=== PATIENT | male | born 1960 | race Caucasian/White ===

== ENCOUNTER 2017-11-04 07:50 | Inpatient (IN) ==
[2017-11-04] MEDS ORDERED: *HR* Ticagrelor 90 MG TABLET PO ONE (07:55)
[2017-11-04] MEDS ORDERED: *HR* Heparin 5,000 UNIT/ML VIAL IVP PRN ×2 (07:58)
[2017-11-04] MEDS ORDERED: *HR* Heparin 5,000 UNIT/ML VIAL IVP ONE (07:58)
--- NOTE | 2017-11-04 08:02 | Emergency Department Note ---
Disposition Clinical Impression: ST segment depression Chest pain Qualifiers: Chest pain type: unspecified Qualified Code(s): R07.9 - Chest pain, unspecified Disposition: Admitted As Inpatient Condition: Good Time of Disposition: 08:14 Chest Pain HPI - General Chief Complaint: ED Chest Pain Time Seen by Provider: 11/04/17 07:52 Source: patient, EMS Mode of arrival: EMS Limitations: no limitations Vital Signs Reviewed: Yes Nursing Notes Reviewed: Yes - History of Present Illness HPI Narrative: 57-year-old male former smoker presents to the ED via EMS for chest pain. States woke up around 630 around 7 o'clock while doing some laundry he felt a heavy pressure in the center of the chess with radiation down the arms. He has some diaphoresis and nausea denies any shortness of breath. Symptoms resolved. EMS arrived EKG performed showed T wave inversion in the lateral leads which was transmitted here to [facility] and seeing at 0745. While in route patient develop chest pain and a rhythm strip performed at [address] elevation in inferior leads with reciprocal ST depression. V2 V3. Patient was given total of 2 nitro with resolution of symptoms. A full dose 324 mg aspirin given as well. Patient denies history of cardiac ischemic disease. Denies any family cardiac history. He was a former smoker. He denies any blood in his stool, black tarry stool, emits emesis or hemoptysis. Denies history of blood clots. Denies use of anticoagulants. At this time patient states is pain is coming up to a scale up to 10. Blood pressures remained stable systolic 130. We have contacted casino dealer and will establish IV with EKG at bedside and labs drawn with XR at bedside. EKG was performed at arrival 0751 we shows resolution of the ST changes, no T wave inversions there are ST depression seen and V3 V4. No STEMI alert at this time. Pt complaint: chest pain - Related Data Home Medications Medication Instructions Recorded Confirmed Fluticasone Propionate Nasal 2 spray NS DAILY 06/21/16 11/04/17 [Flonase] Naproxen [Naprosyn] 500 mg PO BID 06/21/16 11/04/17 Gabapentin [Neurontin] 300 mg PO TID 11/04/17 11/04/17 Omeprazole [PriLOSEC] 20 mg PO DAILY 11/04/17 11/04/17 Allergies Allergy/AdvReac Type Severity Reaction Status Date / Time Penicillins Allergy See Verified 10/31/15 10:39 Comments All systems ED: reviewed and negative except as stated. Review of Systems: As Per HPI Constitutional: Denies: fever, chills ENT ED: Denies: congestion, dysphagia Cardiovascular: Reports: chest pain. Denies: palpitations Respiratory: Denies: cough, dyspnea Gastrointestinal: Reports: nausea. Denies: abdominal pain, vomiting Genitourinary: Denies: dysuria, hematuria Musculoskeletal: Denies: back pain, neck pain Integumentary: Denies: rash, abrasion Neurological: Denies: headache, vertigo Endocrine: Reports: fatigue Hematological/Lymphatic: Denies: easy bleeding, easy bruising Chest Pain PMH - Past Medical History Medical history: Reports: arthritis, GERD Surgical history: Reports: cholecystectomy, orthopedic, other Psychiatric history: Reports: no psych history - Social History Smoking Status: Former smoker Alcohol use: Reports: heavy Physical Exam - General Limitations: no limitations General appearance: alert, in no apparent distress - Head Head exam: atraumatic, normocephalic, normal inspection - Eye Eye exam: Present: normal appearance, PERRL, EOMI - ENT ENT exam: normal exam, normal oropharynx, mucous membranes moist - Neck Neck exam: Present: normal inspection, full ROM, trachea midline - Chest Chest inspection: Present: normal inspection, symmetric chest wall rise. Absent : tenderness, rash - Respiratory Respiratory exam: Present: normal lung sounds bilaterally. Absent: respiratory distress, wheezes - Cardiovascular Cardiovascular exam: Present: regular rate, normal rhythm, normal heart sounds - Expanded Cardiovascular Exam Peripheral pulses: 2+: radial (R), radial (L), posterior tibialis (R), posterior tibialis (L) - Abdominal Exam Abdominal exam: Present: soft, Non-Tender. Absent: tenderness, distention, guarding, rebound, rigidity - Extremities Exam Extremities exam: Present: normal inspection, full ROM, normal capillary refill. Absent: tenderness, pedal edema, calf tenderness - Neurological Exam Neurological exam: Present: alert, oriented X3 - Psychiatric Psychiatric exam: Present: normal affect, normal mood - Skin Skin exam: Present: warm, dry, intact, normal color, pallor. Absent: cyanosis, diaphoresis Course Course Narrative: 57-year-old male presents with typical chest pain with some minimal exertion with associated diaphoresis and nausea. EKG performed by EMS with active chest pain show ST elevation in inferior lead with reciprocal ST depression. On arrival patient has received full dose aspirin with a total of 2 nitro sublingual with resolution of pain. EKG performed here at [address] showed [address] elevation. STEMI workup initiated no alert at this time. Contacted the casino dealer Dr. Cano who recommends nitro and pain control. Placed on low-dose ACS heparin, no bolus of Brilinta or Plavix at this time. Patient will require heart catheterization later today. Will be admitted for chest pain evaluation. He is in agreement with this plan. - Reevaluation(s) Reevaluation #1: Patient's currently chest pain free. A repeat EKG was performed showed normalization of the ST segment. The troponin 0.01. HEART score 6. Spoke with Dr. Cano the field adjuster and will come down to see the patient. He will be admitted. Time: 09:12 - Consultations Consultation #1: My ED attending Dr. Solares, spoke with casino dealer Dr. Chadwick Cano who agree with workup and to not activate STEMI alert at this time. Will control pain with nitro drip and hold Brilinta and Plavix, place on Heparin drip and clinical laboratory manager later in next hour or so. Currently pain is down to 2. Denies any blood in stool, black tarry stool, hematemesis, or hemoptysis. Denies anticoagulant use. Time: 08:00 Vital Signs Pulse Rate 96 11/04/17 07:50 Respiratory Rate 18 11/04/17 07:50 Blood Pressure 138/83 11/04/17 07:50 O2 Sat by Pulse Oximetry 95 11/04/17 07:50 Temperature 97.7 F 11/04/17 08:22 Pulse Rate 77 11/04/17 09:30 Respiratory Rate 16 11/04/17 09:30 Blood Pressure 140/87 11/04/17 09:45 O2 Sat by Pulse Oximetry 97 11/04/17 09:30 Oxygen Delivery Oxygen Delivery Room Air Chest Pain - MDM Narrative Medical decision making narrative: Patient was discussed with my attending physician who agrees with ED management and final disposition. They independently evaluated the patient. Please refer to their attestation to this encounter for additional information. This note was generated by [employer] voice recognition software and as a result grammatical or spelling errors may occur using this program. - Medical Records Medical records reviewed: Yes I reviewed the patient's medical records. - Lab Data Lab results reviewed: Yes I reviewed the patient's lab results. Result diagrams: 11/04/17 07:55 11/04/17 07:55 Lab Results 11/04/17 11/04/17 11/04/17 Range/Units 07:55 07:55 07:55 WBC 7.7 (4.3-11.1) K/mcL RBC 4.87 (4.19-5.50) M/mcL Hgb 16.2 (12.9-16.9) g/dL Hct 45.6 (37.5-50.1) % MCV 93.6 (83.0-100.0) fL MCH 33.3 (28.0-33.3) pg MCHC 35.5 (31.6-35.5) g/dL RDW 12.4 (11.5-14.5) % Plt Count 243 (140-400) K/mcL MPV 9.1 L (9.4-12.4) fL Immature Gran % 0.1 (0-4) % Seg Neutrophils % 41.1 % Lymphocytes % 46.3 % Monocytes % 10.7 % Eosinophils % 1.0 % Basophils % 0.8 % Neutrophils # 3.1 (1.6-8.9) K/mcL Lymphocytes # 3.5 (0.6-4.6) K/mcL Monocytes # 0.8 (0.0-1.3) K/mcL Eosinophils # 0.1 (0.0-0.6) K/mcL Basophils # 0.1 (0.0-0.2) K/mcL PT 11.8 (9.4-12.1) Seconds INR 1.1 APTT 24.1 L (26.0-36.0) Seconds Sodium 138 (136-145) mEq/L Potassium 4.2 (3.5-4.5) mEq/L Chloride 105 (98-109) mEq/L Carbon Dioxide 20 (19-29) mEq/L BUN 12 (8-26) mg/dL Creatinine 1.00 (0.72-1.25) mg/dL Est GFR ( Amer) > 60 (> 60) Est GFR (Non-Af Amer) > 60 (> 60) BUN/Creatinine Ratio 12 (6-26) Glucose 155 H (70-99) mg/dL Calculated Osmolality 289 (280-300) Calcium 8.8 (8.6-10.8) mg/dL Troponin I (0-0.03) ng/mL 11/04/17 Range/Units 07:55 WBC (4.3-11.1) K/mcL RBC (4.19-5.50) M/mcL Hgb (12.9-16.9) g/dL Hct (37.5-50.1) % MCV (83.0-100.0) fL MCH (28.0-33.3) pg MCHC (31.6-35.5) g/dL RDW (11.5-14.5) % Plt Count (140-400) K/mcL MPV (9.4-12.4) fL Immature Gran % (0-4) % Seg Neutrophils % % Lymphocytes % % Monocytes % % Eosinophils % % Basophils % % Neutrophils # (1.6-8.9) K/mcL Lymphocytes # (0.6-4.6) K/mcL Monocytes # (0.0-1.3) K/mcL Eosinophils # (0.0-0.6) K/mcL Basophils # (0.0-0.2) K/mcL PT (9.4-12.1) Seconds INR APTT (26.0-36.0) Seconds Sodium (136-145) mEq/L Potassium (3.5-4.5) mEq/L Chloride (98-109) mEq/L Carbon Dioxide (19-29) mEq/L BUN (8-26) mg/dL Creatinine (0.72-1.25) mg/dL Est GFR ( Amer) (> 60) Est GFR (Non-Af Amer) (> 60) BUN/Creatinine Ratio (6-26) Glucose (70-99) mg/dL Calculated Osmolality (280-300) Calcium (8.6-10.8) mg/dL Troponin I 0.01 (0-0.03) ng/mL - Radiology Data Radiology results reviewed: Yes I reviewed the patient's radiology results. Chest X-Ray 11/04/17 07:52 IMPRESSION: No evidence of acute cardiopulmonary disease. D/ / Sridhar Goff MD / Sridhar Goff MD Interpreting Provider: Sridhar Goff MD - EKG Data EKG attestation: Yes I reviewed and interpreted this EKG. EKG results narrative: EKG performed 0751 normal sinus rhythm 74 bpm, no ST elevation, ST depression seen V3 V4. No T wave inversion. Intervals are within normal limits. Compared to old EKG performed 11/22/2002 normal sinus rhythm [address] depressions are new. NOT STEMI Heart Score - Score History: Highly Suspicious EKG: Significant ST-Depression Age: 45-65 Risk Factors: 1-2 risk factors Troponin: Less than normal limit HEART Score Total: 6 Critical Care Time Critical Care Time: Yes Total Critical Care Time: 30 Attestation: The high probability of a clinically significant, sudden or life threatening deterioration of the [CV] system(s) required my full and direct attention, intervention and personal management. The aggregate critical care time was [30] minutes. This time is in addition to time spent performing reported procedures but includes the following: [x] Data Review and interpretation [x] Patient assessment and monitoring of vital signs [x] Documentation [x] Medication orders and management Attestation Statement - Attestation Attestation: I, Joseph Solares DO, examined this patient [id number] and my medical decision-making was reviewed with Manjit Gaming DO , Resident Physician. I agree with the documented findings, disposition and treatment plan as described except to the extent set forth below. Please see my progress notes for details. 57-year-old male presents emergency room by EMS with acute onset of left-sided substernal chest pain that started approximately 0700 hrs. this morning. During transport by EMS initial EKG did not show any acute signs of ST segment elevation. There were inverted T waves in 1 aVL in the lateral precordial leads. While driving to the hospital patient had acute onset of severe substernal chest pain. Repeat EKG showed significant ST segment elevation in leads 2, 3, aVf. Nitroglycerin was given as well as aspirin in transit. On arrival to the emergency room patient's chest pain was down to a 2. Immediate EKG was collected on arrival. Dr. rodrigues EKG shows no acute signs of ST segment elevation but there is possibly 1-1/2 mm depression in leads V2 and V3. Patient's chest pain is resolving at this time. Based on the symptoms history and EKGs in transit and immediate phone call status up to the casino dealer. A acute coronary syndrome alert was not started at this time secondary to the patient's resolving symptoms and stable EKG. Discussion was had with Dr. Chadwick Cano at length. We discussed the risks and history of this patient at this time. He recommended starting the patient on heparin drip and getting the laboratory workup results and discussing catheterization within the next hour. Agreed that no immediate catheterization is needed at this time. Also understands the patient will need cardiac intervention at some point considering the hospital EKGs in the presentation. Physical exam is otherwise unremarkable. Patient denies any other medications or medical history. He denies any cough, congestion hematemesis or hematochezia. Denies any dark melenic colored stool. Workup was ordered including Plavix and underwent. Those orders were canceled and heparin was started along with the nitroglycerin drip to be initially titrated at 50 g. Patient was resting comfortably in the bed. We will continue to monitor here until labs are resulted and then patient transferred to the Master Control Operator for definitive management. He detailed documentation of the physical exam, medical intervention, medical decision-making and disposition and the resident physician 's note 0825 Labs are all unremarkable this time. Hemoglobin is stable. Nitroglycerin and heparin drip started. Reconsultation with Dr. Cano established at this time for medical recommendation. Patient does elicit some alcohol abuse history including drinking daily. Last drink was at 10 PM last night 0930 Dr. izaguirre evaluated the patient here at the bedside. He is going to the patient's catheter lab. Nursing staff is on the way to pick him up at this time. Patient is remained chest pain-free here in the emergency room and said to repeat EKGs that showed no acute signs of ST segment elevation. Vital signs remained stable. Patient will be transported to the Master Control Operator at this time for definitive management
[2017-11-04 08:03] LABS: Basophils # 0.1 K/mcL (0.0-0.2); Basophils % 0.8 %; Eosinophils # 0.1 K/mcL (0.0-0.6); Hematocrit 45.6 % (37.5-50.1); Hemoglobin 16.2 g/dL (12.9-16.9); Immature Granulocytes % 0.1 % (0-4); Lymphocytes # 3.5 K/mcL (0.6-4.6); Lymphocytes % 46.3 %; Mean Corpuscular HGB Conc 35.5 g/dL (31.6-35.5); Mean Corpuscular Hemoglobin 33.3 pg (28.0-33.3); Mean Corpuscular Volume 93.6 fL (83.0-100.0); Mean Platelet Volume 9.1 fL (9.4-12.4); Monocytes # 0.8 K/mcL (0.0-1.3); Monocytes % 10.7 %; Neutrophils # 3.1 K/mcL (1.6-8.9); Platelet Count 243 K/mcL (140-400); Red Blood Count 4.87 M/mcL (4.19-5.50); Red Cell Distribution Width 12.4 % (11.5-14.5); Segmented Neutrophils % 41.1 %
[2017-11-04] MEDS: Heparin 25,000 UNIT/500 ML D5W 25,000 UNIT/500 ML BAG IVC SCH (08:08)
[2017-11-04 08:09] LABS: INR 1.1; Prothrombin Time 11.8 Seconds (9.4-12.1)
[2017-11-04] MEDS: Nitroglycerin 25 MG/250 ML INFUS..BTL IVC SCH (08:09)
[2017-11-04] MEDS ORDERED: 0.9 % Sodium Chloride 1,000 ML ONE ×2 (08:10→09:41)
[2017-11-04 08:11] LABS: Activated Partial Thrombo Time 24.1 Seconds (26.0-36.0)
[2017-11-04 08:16] LABS: BUN/Creatinine Ratio 12 (6-26); Blood Urea Nitrogen 12 mg/dL (8-26); Calcium 8.8 mg/dL (8.6-10.8); Carbon Dioxide 20 mEq/L (19-29); Chloride 105 mEq/L (98-109); Glucose 155 mg/dL (70-99); Osmolality,Calculated 289 (280-300); Sodium 138 mEq/L (136-145); eGFR For African Americans > 60 (> 60); eGFR For Non-African Americans > 60 (> 60)
[2017-11-04 08:18] LABS: Potassium 4.2 mEq/L (3.5-4.5)
[2017-11-04] MEDS ORDERED: *HR* Heparin 10,000 UNIT/10 ML VIAL ONE (09:42)
[2017-11-04] MEDS ORDERED: Heparin 1,000 UNITS/500 mL NS 0 ML ONE (09:42)
[2017-11-04] MEDS ORDERED: Nitroglycerin 1,000 MCG/10 ML VIAL IV ONE (09:42)
--- NOTE | 2017-11-04 09:48 | Cardiology History & Physical ---
Date of Encounter: 11/04/17 Time of Encounter: 09:15 Assessment and Plan (1) Chest pain Current Visit: Yes Status: Acute The assessment and plan as outlined above was discussed with the patient and/or family members who expressed understanding and agreement. All questions were answered. Chest pain consistent with acute coronary syndrome, transient EKg changes suggest inferior distribution, risks and benefits discussed, options for medical vs. invasive approach, recommendations for invasive approach in light of continued chest pain, patient elects to proceed with LHC/possible, at bedside agrees. Qualifiers: Chest pain type: chest pain due to myocardial ischemia Qualified Code(s): I20.9 - Angina pectoris, unspecified (2) GERD (gastroesophageal reflux disease) Current Visit: Yes Status: Acute The assessment and plan as outlined above was discussed with the patient and/or family members who expressed understanding and agreement. All questions were answered. Chest pain presentation much different from usual GERD pain, will continue PPI Qualifiers: Qualified Code(s): K21.9 - Gastro-esophageal reflux disease without esophagitis (3) Back pain due to injury Current Visit: Yes Status: Acute The assessment and plan as outlined above was discussed with the patient and/or family members who expressed understanding and agreement. All questions were answered. Pain adequately controlled on NSAIDS, will discuss discontinuation due to increased cardiovascular risk after define coronary anatomy. (4) Hip pain Current Visit: Yes Status: Acute The assessment and plan as outlined above was discussed with the patient and/or family members who expressed understanding and agreement. All questions were answered. 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 Qualifiers: Qualified Code(s): M25.551 - Pain in right hip; M25.552 - Pain in left hip; M25.552 - Pain in left hip History of Present Illness Chief complaint: Chest pain HPI: Mr. Christie is a 57 year old male who awoke approximately 6 am with severe 9/10 epigastric chest pain, accompanied by shortness of breath and diaphoresis, lasted around then minutes, resolved spontaneously to 3/10. He felt pain would be relieved with bowel movement, walked to bathroom, pain returned, now radiating into neck and both arms. He left the commode, laid down on the floor for approximately ten minutes, with improvement in pain to 5/10, which increased back to 9/10 with attempting to stand and walk. His called the squad, and gave him one baby aspirin. He received another 4 aspirn in route. Initial EKG on the scene was normal, with pain slowly resolving. In route he developed again worsening pain with radiation, and repeat EKG showed acute ST seg elevation in inferior leads. Chest pain and EKG changes resolved to 1/10 with second sub linqual ntg. He reports still has mild 1 -2 mid epigastric pressure. Neck and arm pain, diaphoresis and nausea have resolved. Past Med Surg Social Fam HX - Past Medical History Source: patient Medical history: arthritis, GERD, other (Chronic low back pain secondary to lumbar disc disease, on disability for back pain. ) Psychiatric history: no psych history - Past Surgical History Surgical History: cholecystectomy, orthopedic, other - Social History Smoking Status: Former smoker Smokeless Tobacco Status: No Alcohol use: heavy Drug use: none - Family History Father Living Status: Cause of : cancer Hx Family Cardiac Disorders: No Hx Family Respiratory Disorders: No Hx Family Cancer: Yes Mother Hx Family Cardiac Disorders: Yes (Mom of CHF of unknown cause. ) Medications and Allergies Fluticasone Propionate Nasal [Flonase] 2 spray NS DAILY 06/21/16 [History] Naproxen [Naprosyn] 500 mg PO BID 06/21/16 [History] Gabapentin [Neurontin] 300 mg PO TID 11/04/17 [History] Omeprazole [PriLOSEC] 20 mg PO DAILY 11/04/17 [History] 3 Allergy/AdvReac Type Severity Reaction Status Date / Time Penicillins Allergy See Verified 10/31/15 10:39 Comments All Systems Review: A 10-system review of systems was performed and is negative for pertinent findings except as documented above in the HPI. - Constitutional Constitutional: weight gain - Cardiovascular Cardiovascular: chest pain at rest, diaphoresis, dyspnea at rest, radiating jaw , neck or arm pain - Musculoskeletal Musculoskeletal: abnormal gait, arthralgias, back pain, other (Severe back pain limits activity, but has been walking one mile a day slowly, feels he does less than a third the activity he performed before back injury three years ago. HE also has chronic bilateral hip pain, with bilateral hip replacements, on Naprosyn for pain control. ) Physical Examination Vital Signs, Last 4 Hours Temp Pulse Resp BP Pulse Ox 11/04/17 09:30 77 16 127/77 97 11/04/17 08:45 71 18 128/86 98 11/04/17 08:30 71 18 132/85 97 11/04/17 08:22 97.7 F 103 16 135/87 99 11/04/17 08:15 103 16 135/87 99 11/04/17 08:00 85 16 124/77 98 11/04/17 07:50 96 18 138/83 95 General: Conversant HEENT: Atraumatic, Normocephaly, Mucus Membranes Moist Neck: No JVD, Normal carotid pulses Cardiac: Reg Rate and Rhythm, Normal S1 and S2, No Murmur Lungs: No Wheeze, Rales, Rhonchi Neuro: Alert and responsive, No focal deficits noted Abdomen: Soft, Non-Tender, Other (no abdominal bruit or palpable mass. ) Skin: No rashes noted on visualized skin Musculoskeletal: No Chest Wall Tenderness Extremities: No Clubbing, No Cyanosis, No Edema Results 11/04/17 07:55 11/04/17 07:55 Lab Results 11/04/17 11/04/17 11/04/17 07:55 07:55 07:55 WBC 7.7 Hgb 16.2 Hct 45.6 Plt Count 243 INR 1.1 APTT 24.1 L Sodium 138 Potassium 4.2 Chloride 105 Carbon Dioxide 20 BUN 12 Creatinine 1.00 Glucose 155 H Calcium 8.8 Troponin I 11/04/17 07:55 WBC Hgb Hct Plt Count INR APTT Sodium Potassium Chloride Carbon Dioxide BUN Creatinine Glucose Calcium Troponin I 0.01 - EKG Interpretation EKG results cardiology: personally reviewed (NSR, no acute changes on most recent EKG with chest pain improved.)
[2017-11-04] MEDS ORDERED: *HR* Morphine 2 MG/ML SYRINGE IVP PRN (10:06)
[2017-11-04] MEDS ORDERED: *HR* Midazolam HCl 5 MG/5 ML VIAL IVP ONE (10:08)
[2017-11-04] MEDS ORDERED: Acetaminophen 325 MG TABLET PO PRN (10:58)
--- NOTE | 2017-11-04 10:58 | Invasive Diagnostic Lab Proc ---
Name: Genaro Christie Date of Study: 11/04/2017 Date: 1960 Ht: 70.1in Medical Record#: [id number] Age: 57 Wt: 220.02lb Gender: Male BSA: 2.18 Order #: [id number] BMI: 31.5 Physicians Procedure Physician: Chadwick Cano DO Referring MD: Referring MD: Staff Name Position Time In Irene Wallace RN Monitor 10:15 AM Vickie Palacio RN Retort Furnace Operator 10:15 AM Ronel Curry RT (R) Scrub 10:16 AM Indications Indication Unstable Angina Procedures Performed Procedure L HRT ARTERY/VENTRICLE ANGIO Pre-Procedure Checklist Informed consent is complete signed and on chart. H&P is on chart. ID band is on and ID verified with patient. Patient NPO for procedure The procedure was described for the patient and questions were answered. Blood Pressure: 161/87 ECG is on chart. Rhythm: NSR Plan of Care Patient will tolerate the procedure without complications. Adequate level of comfort will be maintained. Hemodynamics will remain stable Patient will recover from procedure without complications. Respiratory function will be maintained. Cardiac rhythm will remain stable. Patient temperature will be maintained. Patient and/or family have verbalized understanding of the procedure. Patient Education Chief Complaint/Reason for Test: Cardiac Cath Developmental Category: Adult (18-64 years) Developmentally Appropriate for Age: Yes Learning Barriers: None Education Needs: Plan of Care Education Method: Verbal Information Taught: Cardiac Cath Educational Evaluation: Able to repeat information Intravenous Access Time IV Size Location DC'd Fluid/Drip Rate Units RN 10:14 AM 18g 1 1/4" Patent On Arrival Lt Antecubital Vickie Palacio RN 10:15 AM 18g 1 1/4" Patent On Arrival Rt Hand Vickie Palacio RN Allergies Penicillins Vital Signs Time BP (mmHg) HR (bpm) O2 Sat. RR (bpm) LOC 10:15 AM 128 / 86 71 98 % 18 5 = Fully awake and oriented or at pre-proc level 10:19 AM / % 4 = Oriented but drowsy 10:20 AM / % 5 = Fully awake and oriented or at pre-proc level 10:08 AM 161 / 87 66 99 % 25 10:13 AM 166 / 89 64 100 % 23 10:18 AM 161 / 89 79 100 % 18 10:23 AM 134 / 104 94 100 % 14 10:28 AM 157 / 93 81 100 % 12 10:33 AM 170 / 110 84 100 % 17 10:20 AM / % 5 = Fully awake and oriented or at pre-proc level Procedural Medications Time Medication Dose Units Method Given By 10:17 AM Oxygen 2 L/min nasal cannula Vickie Palacio RN 10:07 AM Versed 2 mg Intravenous Vickie Palacio RN 10:17 AM Versed 1 mg Intravenous Vickie Palacio RN 10:18 AM Lidocaine 2% 10 ml Subcutaneous Chadwick Cano DO Maikel Score Preprocedure Postprocedure Activity 2- Moves 4 extremities sustained head lift Activity 2- Moves 4 extremities sustained head lift Circulation 2- SBP +/= 20 points of pre-anesthetic level Circulation 2- SBP +/= 20 points of pre-anesthetic level Consciousness 2- Awake and alert oriented x 3 Consciousness 2- Awake and alert oriented x 3 O2 Saturation 2- Able to maintain O2 satruation of 92% on room air O2 Saturation 2- Able to maintain O2 satruation of 92% on room air Respiratory 2- Able to deep breathe and cough well Respiratory 2- Able to deep breathe and cough well Total Score 10 Total Score 10 Contrast Agent: Isovue Diagnostic Contrast: 50 ml Total Contrast: 50 ml Fluoro Dose: 237 mGy Procedure Log Time Note Enter By 10:00 AM heparin and nitro drip discontinued on arrival to labor trainer. [email or web address] 10:00 AM Pt [facility] labor trainer [facility] Irene Wallace RN Position: Monitor Time in: 10: [facility] 10[facility]01 AM Case Delayed No [email or web address] 10:01 AM Vickie Palacio RN Position: Retort Furnace Operator Time in: 10: [facility] 10:01 AM Ronel Curry RT (R) Position: Scrub Time in: 10:00 [facility] 10:03 AM Patient charges- Angio tray pack, Navilyst 3mm J, Pulse Oximetry and ACIST tubing and transducer [email or web address] 10:07 AM CathStat 10:07 AM Vitals capture started with the following parameters, Patient=Adult, Interval=5 min, Initial Ascxzlvu=588 mmHg, Deflation Rate=5 mmHg, Cuff placed on Right Arm 10:07 AM Time: : Versed 2 mg Intravenous Given by Vickie Palacio RN [email or web address] 10:08 AM HR=66 bpm, OACN=339/87 mmhg, SpO2=99.0 %, Resp=25 B/min, Comment=NSR 10:13 AM Recorded ECG: HR=63 Condition=Condition 1 10:13 AM HR=64 bpm, EUBN=608/89 mmhg, ArD9=603.0 %, Resp=23 B/min 10:14 AM Pressure channel 1 zeroed. 10:17 AM Hair removed from procedure site in procedure lab using clippers. Bilateral groin prepped with Chloraprep by Vickie Palacio RN, safety strap applied then patient was draped. Skin intact. [email or web address] 10:17 AM Physican paged/called 10:17. [email or web address] 10:17 AM Physican responded and notified patient is ready 10:17 [email or web address] 10:17 AM Physician arrived 10:17 [email or web address] 10:17 AM Meet and greet completed [email or web address] 10:17 AM Sign in performed according to hospital policy. [email or web address] 10:17 AM Procedure start 10:17 [email or web address] 10:17 AM Time: 10:17 Oxygen on at 2 L/min per nasal cannula by Vickie Palacio RN [email or web address] 10:17 AM Time: 10:17 Versed 1 mg Intravenous Given by Vickie Palacio RN [email or web address] 10:18 AM Clinical Presentation: Unstable angina [email or web address] 10:18 AM Time out performed according to hospital policy [email or web address] 10:18 AM Time: 10:18 10 ml Lidocaine 2% to right groin Subcutaneous Given by Chadwick Cano DO [email or web address] 10:18 AM Micro-Introducer Kit utilized for sheath placement [email or web address] 10:18 AM HR=79 bpm, ZVPH=208/89 mmhg, PcK5=796.0 %, Resp=18 B/min, Comment=NSR 10:19 AM Time: 10:19 Patient comfortable and pain free: Yes [email or web address] 10:19 AM Time: 10:19LOC: 4 = Oriented but drowsy [email or web address] 10:20 AM Time: 10:20 Patient comfortable and pain free: Yes [email or web address] 10:20 AM Time: 10:20LOC: 5 = Fully awake and oriented or at pre-proc level [email or web address] 10:22 AM Access obtained by percutaneous puncture. 5Fr 10cm Terumo [place] sheath placed in right Femoral vein. [id number] tsoummers 10:23 AM Access obtained by percutaneous puncture. 6Fr 10cm Terumo [place] sheath placed in right Femoral artery. [id number] tsoummers 10:23 AM HR=94 bpm, DTVB=901/104 mmhg, MbQ5=380.0 %, Resp=14 B/min, Comment=NSR 10:23 AM 6Fr FL 4 catheter inserted over the wire [facility] mmers 10:24 AM LCA angiography performed in multiple views. [email or web address] 10:24 AM Recorded Pressure: Ao, HR=68, Condition=Condition 1 (Aorta) Ao 119/69/89 10:26 AM Catheter removed tsoumm 10:26 AM 6Fr FR 4 catheter inserted over the wire [facility] tsoummers 10:27 AM Recorded Pressure: LV, HR=67, Condition=Condition 1 (Left Ventricle) LV 60/17/15 10:27 AM Recorded Pressure: LV, Ao, PQ=292, Condition=Condition 1 (Left Ventricle) LV 89/6/14, (Aorta) Ao 126/64/92 10:28 AM Catheter selectively placed in left ventricle tsoummers 10:28 AM Bolus angiogram of left Ventricle complete: hand injection. [email or web address] 10:28 AM RCA angiography performed in multiple views. [email or web address] 10:28 AM Recorded Pressure: Ao, HR=84, Condition=Condition 1 (Aorta) Ao 123/71/96 10:28 AM HR=81 bpm, SBQL=705/93 mmhg, KjE1=120.0 %, Resp=12 B/min, Comment=NSR 10:29 AM Bolus angiogram of right Femoral complete: hand injection. [email or web address] 10:29 AM Catheter removed mm 10:29 AM Wire removed [facility] 10:29 AM Procedure completed at 10:29 tsmmers 10:31 AM Sign out completed: Radiation Dose 237.27 mGy Fluoro Time: 1.1 Isovue 370 - 200ml contrast 50 ml given by Chadwick Cano DO. Complications: NoneCardiac Rehab Consult needed: YesConfirmed administered medications: Yes tsmmers 10:31 AM Arterial sheath pulled, Mynx closure device used and was Successful [id number] S/N. tsoummers 10:32 AM Estimated Blood Loss: minimal tsoummers 10:32 AM Post ECG NSR tsoummers 10:32 AM Post Blood Pressure 157/93 tsoummers 10:32 AM Information taught Cardiac Cath mm 10:32 AM Education needs Procedure, Plan of Care, and Responsibilities of Patient in Care tsoummers 10:32 AM Learning barriers :None tsoummers 10:32 AM Education Methods Verbal oummers 10:32 AM Education evaluation Able to repeat information [facility] 10:33 AM Site status No bleeding/hematoma - Rt Groin as reported by Ronel Curry RT (R) at 10:32 tsoummers 10:33 AM Plavix, Effient or Brilinta given No oummers 10:33 AM Family placed in consult room. [email or web address] 10:33 AM Complications: None oummers 10:33 AM Fluoro Time: 1.1 tsoummers 10:33 AM Isovue 370 - 200ml contrast 50 ml given by Chadwick Cano DO. tsoummers 10:33 AM HR=84 bpm, GCZQ=860/110 mmhg, SnW9=570.0 %, Resp=17 B/min, Comment=NSR 10:33 AM Radiation Dose 237.27 mGy tsoummers 10:34 AM Conversation between Interventionalist and CT Surgeon. tsoummers 10:35 AM Opsite applied oummers 10:36 AM Time: 10:20LOC: 5 = Fully awake and oriented or at pre-proc level tsoummers 10:36 AM Time: 10:20 Patient comfortable and pain free: Yes tsoummers 10:37 AM Coronary Dominance: right tsoummers 10:37 AM Lesion found in Proximal RCA. Pre Stenosis: 30 Pre GUANACO Flow: tsoummers 10:37 AM Lesion found in Distal RCA. Pre Stenosis: 70 Pre GUANACO Flow: tsoummers 10:37 AM Lesion found in Proximal LAD. Pre Stenosis: 80 Pre GUANACO Flow: tsoummers 10:38 AM Lesion found in 1st Marginal. Pre Stenosis: 80 Pre GUANACO Flow: tsoummers 10:38 AM Proximal Left Anterior Descending Coronary Artery with 80% stenosis. If graft is supplying this territory, 0 % stenosis. tsoummers 10:38 AM Circumflex, Obtuse Marginal, Left Posterior Descending, and Left Posterolateral Coronary Arteries with 80 % stenosis. tsoummers 10:38 AM Right Coronary, Right Posterior Descending Arteries with Right Posterolateral and Acute Marginal branches with 70 % stenosis. tsmmers 10:40 AM nitro drip resumed at 50mcg/min at this time per Vickie Palacio RN [facility] 10:[address] Valencia at this time. [facility] 10:48 AM Report given to Agnes ALCALA Pt taken to Room #54. 10:48 [facility] 10:49 AM Patient out of room: 10:49 [facility] 10:49 AM Delay to floor No [facility] Complications Complication None Hemodynamics Pressures Site Systolic/A Wave Diastolic/V Wave Mean AO 119 69 89 LV 60 17 15 LV 89 6 14 AO 126 64 92 AO 123 71 96 Post Procedure Information Blood Pressure: 157/93 mmHg Rhythm: NSR Post procedural instructions were given Surgery consult for CABG Closure Device Time Device Success/Fail 11/04/2017 10:31:00 AM MynxGrip Successful Site Checks Time Location Status Staff Sheath In? Note 10:32 AM Rt Groin No bleeding/hematoma Ronel Curry RT (R) Pulses Updated by Irene Wallace RN on 11/04/2017 10:49:45 AM electronically signed on 11/04/2017 10:50:11 AM with status of Final
[2017-11-04] MEDS: 0.9 % Sodium Chloride 1,000 ML IVC SCH ×3 (13:32→23:10)
[2017-11-04] MEDS: Gabapentin 300 MG CAPSULE PO SCH ×2 (14:52→21:23)
--- NOTE | 2017-11-04 16:19 | Cardiothoracic Consult Note ---
Date of Encounter: 11/04/17 Time of Encounter: 16:16 Assessment and Plan (1) Chest pain Current Visit: Yes Status: Acute The patient is a 57-year-old otherwise healthy man who had his initial onset of substernal chest pains morning. He had severe substernal chest pain and epigastric pain radiating to his neck and down both arms and associated shortness of breath, diaphoresis, and nausea. He underwent urgent cardiac catheterization today was found to have severe three-vessel CAD. LVEF 50%. He has been recommended for urgent CABG. I agree with this recommendation. The STS risk ocular reveals an operative mortality risk 0.37%, permit stroke risk 0.32% , prolonged ventilation risk 3.93%, deep sternal wound infection risk 0.26%, renal failure risk 0.83%, and reoperation risk 2.92%. The patient will undergo CABG in the morning. The assessment and plan as outlined above was discussed with the patient and/or family members who expressed understanding and agreement. All questions were answered. Qualifiers: Chest pain type: chest pain due to myocardial ischemia Qualified Code(s): I20.9 - Angina pectoris, unspecified - History of Present Illness Consult date: 11/04/17 Requesting physician: Chadwick Cano Consult reason: CABG evaluation Chief complaint: Chest pain History of present illness: Mr. Christie is a 57 year old otherwise healthy man with sudden onset of epigastric and substernal chest pain radiating into his neck and down both arms this morning. Initially the patient thought that he had indigestion and walked into the bathroom. At this time the patient had severe pain and associated shortness of breath, diaphoresis, and nausea. The patient laid on the bathroom floor and had some relief of his substernal chest pain. His gave him an aspirin with some relief of the pain. The patient was transported to [facility] emergency department and in route received additional aspirin. In the emergency department he received sublingual nitroglycerin with relief of his pain. Although the initial troponin I level was normal, he underwent urgent cardiac catheterization given his presenting symptoms. The cardiac catheterization revealed severe three-vessel CAD and an LVEF 50%. In particular the patient had an 80% proximal LAD lesion, an 80% proximal OM1 lesion, an 80% distal RCA lesion. He has been recommended for urgent CABG. Past Med Surg Social Fam HX - Past Medical History Medical history: arthritis, coronary artery disease, GERD, other Psychiatric history: no psych history - Past Surgical History Surgical History: cholecystectomy, orthopedic, other (Bilateral total hip replacements, right rotator cuff repair) - Social History Smoking Status: Former smoker Packs per day: 1.5ppd X 15 years Smokeless Tobacco Status: No Alcohol use: heavy Drug use: none Occupational status: previously employed, disabled Current living situation: Home - Independent Activity Level: Independent ambulation, Very active Recent Out of Country Travel Within the Last 8 Weeks: No Exposure or Possible Exposure to Illness During Travel: No - Family History Father Living Status: Cause of : cancer Hx Family Cardiac Disorders: No Hx Family Respiratory Disorders: No Hx Family Cancer: Yes Mother Hx Family Cardiac Disorders: Yes (Mom of CHF of unknown cause. ) Medications and Allergies Fluticasone Propionate Nasal [Flonase] 2 spray NS DAILY 06/21/16 [History] Naproxen [Naprosyn] 500 mg PO BID 06/21/16 [History] Gabapentin [Neurontin] 300 mg PO TID 11/04/17 [History] Omeprazole [PriLOSEC] 20 mg PO DAILY 11/04/17 [History] 3 Allergy/AdvReac Type Severity Reaction Status Date / Time Penicillins Allergy See Verified 10/31/15 10:39 Comments All Systems Review: A 10-system review of systems was performed and is negative for pertinent findings except as documented above in the HPI. Physical Examination Vital Signs, Last 4 Hours Temp Pulse Resp BP Pulse Ox 11/04/17 15:16 98.2 F 80 18 138/80 96 11/04/17 14:45 77 16 122/81 96 11/04/17 14:17 92 16 136/82 92 11/04/17 13:17 71 16 137/90 98 11/04/17 12:47 68 16 129/81 96 11/04/17 12:45 71 16 137/90 98 11/04/17 12:17 74 16 126/95 99 General: Conversant, No Apparent Distress Neck: No JVD, Normal carotid pulses Cardiac: Reg Rate and Rhythm, Normal S1 and S2, No Murmur Lungs: Normal Breath Sounds, No Wheeze, Rales, Rhonchi Neuro: Alert and responsive, No focal deficits noted, Motor nerves intact, Sensory nerves intact Vascular: Normal capillary refill Abdomen: Soft, Non-tender Skin: No rashes noted on visualized skin Musculoskeletal: No Chest Wall Tenderness Extremities: No Clubbing, No Cyanosis, No Edema, Normal Pulses Results 11/04/17 07:55 11/04/17 07:55 - Imaging Chest Xray: image reviewed (Normal cardiac size. No active pulmonary disease.) Consult Discharge Plan - Plan Referrals: Diogenes Johnson DO [Primary Care Provider] -
--- NOTE | 2017-11-04 16:52 | Electrocardiograph Report ---
[address] [address] Test Date: 2017-11-04 Pat Name: Genaro Christie Department: 104 Room: 3B54 Gender: M Elementary Supervisor: : 1960 Requested By: Deborah Prather Order Number: [id number] Reading MD: Josie Hitchcock Measurements Intervals [place] Rate: 74 P: 43 ND: 172 QRS: 61 QRSD: 101 T: 60 QT: 439 QTc: 467 Interpretive Statements SINUS RHYTHM WITH SINUS ARRHYTHMIA MODERATE ST DEPRESSION PROLONGED QT INTERVAL Electronically Signed On 11-04-2017 16:51:06 EST by Josie Hitchcock
--- NOTE | 2017-11-04 16:53 | Electrocardiograph Report ---
[address] [address] Test Date: 2017-11-04 Pat Name: Genaro Christie Department: 104 Room: 3B54 Gender: M Senior Information Security Analyst: : 1960 Requested By: Joseph Solares Order Number: [id number] Reading MD: Josie Hitchcock Measurements Intervals [place] Rate: 65 P: 22 AL: 165 QRS: 41 QRSD: 96 T: 55 QT: 433 QTc: 444 Interpretive Statements SINUS RHYTHM Electronically Signed On 11-04-2017 16:51:22 EST by Josie Hitchcock
[2017-11-04 17:03] LABS: Chol/HDL Ratio 2.7 (0-4.9); Cholesterol 143 mg/dL (< 200); HDL Cholesterol 53 mg/dL (40-59); LDL Cholesterol,Calculated 75 mg/dL (0-99); Triglycerides 77 mg/dL (< 150)
[2017-11-04 18:12] LABS: Hemoglobin A1C 4.8 %
[2017-11-04] MEDS: Chlorhexidine Rinse 15 ML MOUTHWASH MM SCH (21:24)
[2017-11-05] MEDS: 0.9 % Sodium Chloride 1,000 ML IVC SCH ×5 (05:41→17:26)
[2017-11-05 06:54] LABS: Basophils % 0.4 %; Eosinophils # 0.1 K/mcL (0.0-0.6); Eosinophils % 0.7 %; Hematocrit 44.5 % (37.5-50.1); Hemoglobin 14.8 g/dL (12.9-16.9); Immature Granulocytes % 0.1 % (0-4); Lymphocytes # 1.9 K/mcL (0.6-4.6); Lymphocytes % 27.8 %; Mean Corpuscular HGB Conc 33.3 g/dL (31.6-35.5); Mean Corpuscular Hemoglobin 32.6 pg (28.0-33.3); Mean Platelet Volume 9.2 fL (9.4-12.4); Monocytes # 0.6 K/mcL (0.0-1.3); Neutrophils # 4.2 K/mcL (1.6-8.9); Platelet Count 210 K/mcL (140-400); Red Blood Count 4.54 M/mcL (4.19-5.50); Red Cell Distribution Width 12.8 % (11.5-14.5)
[2017-11-05 06:58] LABS: BUN/Creatinine Ratio 9 (6-26); Blood Urea Nitrogen 9 mg/dL (8-26); Calcium 8.8 mg/dL (8.6-10.8); Carbon Dioxide 25 mEq/L (19-29); Chloride 109 mEq/L (98-109); Glucose 101 mg/dL (70-99); Osmolality,Calculated 289 (280-300); Potassium 4.4 mEq/L (3.5-4.5); Sodium 140 mEq/L (136-145); eGFR For African Americans > 60 (> 60); eGFR For Non-African Americans > 60 (> 60)
[2017-11-05] MEDS ORDERED: Heparin 1,000 UNIT, 0.9 % Sodium Chloride 500 ML INARTERIAL ONE (08:00)
[2017-11-05] MEDS: Gabapentin 300 MG CAPSULE PO SCH ×3 (08:53→19:49)
[2017-11-05] MEDS ORDERED: Aspirin 81 MG TAB.CHEW PO SCH (09:00)
[2017-11-05] MEDS ORDERED: Fluticasone Propionate Nasal 50 MCG/SPRAY BOTTLE NS SCH (09:00)
[2017-11-05] MEDS ORDERED: Sodium Bicarbonate 50 MEQ/50 ML VIAL IVC ONE (09:10)
[2017-11-05] MEDS ORDERED: *HR* Heparin 10,000 UNIT/10 ML VIAL IV ONE (09:10)
[2017-11-05] MEDS ORDERED: D5% in Water 250 ML IV BAG IV ONE (09:10)
[2017-11-05] MEDS ORDERED: Mannitol 25% vial 12.5 GM/50 ML VIAL IVP ONE (09:10)
[2017-11-05] MEDS ORDERED: Tranexamic Acid 1,000 MG/10 ML VIAL IVPB ONE (09:10)
[2017-11-05] MEDS ORDERED: Lidocaine 2% Syringe 100 MG/5 ML IV ONE (09:10)
[2017-11-05] MEDS ORDERED: Albumin Human 25% 25 GM/100 ML IV.SOLN IV ONE (09:10)
[2017-11-05] MEDS ORDERED: *HR* Phenylephrine 10 MG/ML VIAL IVC ONE (09:10)
[2017-11-05] MEDS ORDERED: *HR* Magnesium Sulfate 2 GM/50 ML PIGGYBACK IVPB ONE (09:10)
[2017-11-05] MEDS ORDERED: *HR* Rocuronium Bromide 50 MG/5 ML VIAL ONE (10:04)
[2017-11-05] MEDS ORDERED: *HR* Succinylcholine 200 MG/10 ML VIAL IVP ONE (10:05)
[2017-11-05] MEDS ORDERED: *HR* Norepinephrine 4 MG/4 ML VIAL IVC ONE (10:07)
[2017-11-05] MEDS ORDERED: *HR* Phenylephrine 10 MG/ML VIAL ONE (10:07)
[2017-11-05] MEDS ORDERED: *HR* EPINEPHrine 1 MG/ML AMPUL ONE (10:09)
[2017-11-05] MEDS ORDERED: *HR* Nitroprusside 50 MG VIAL IVC ONE (10:13)
[2017-11-05] MEDS ORDERED: *HR* FentaNYL (PF) 250 MCG/5 ML VIAL ONE ×2 (10:18→12:59)
[2017-11-05] MEDS ORDERED: *HR* Midazolam HCl 5 MG/5 ML VIAL IVP ONE (10:18)
[2017-11-05] MEDS: Chlorhexidine Rinse 15 ML MOUTHWASH MM SCH (10:46)
[2017-11-05] MEDS ORDERED: D5% in Water 500 ML ONE (10:59)
[2017-11-05] MEDS ORDERED: *HR* Propofol 200 MG/20 ML VIAL IVP ONE ×2 (11:15→14:38)
[2017-11-05] MEDS ORDERED: Clindamycin 900 MG/50 ML 900 MG/50 ML IV.SOLN IVPB ONE ×2 (11:30→12:07)
[2017-11-05 12:10] LABS: ABG Base Excess -2 mEq/L (-2 to 3); ABG Chloride 109 mEq/L (98-107); ABG Glucose 100 mg/dL (60-95); ABG HCO3 22 mEq/L (21-27); ABG Ionized Calcium 1.21 mmol/L (1.15-1.35); ABG Oxygen Saturation 97 % (95-98); ABG PCO2 35 mmHg (35-45); ABG PH 7.41 pH Units (7.32-7.45); ABG PO2 84 mmHg (85-104); ABG TCO2 23 mEq/L (20-26)
[2017-11-05 13:49] LABS: ABG Base Excess -1 mEq/L (-2 to 3); ABG Chloride 110 mEq/L (98-107); ABG Glucose 121 mg/dL (60-95); ABG HCO3 24 mEq/L (21-27); ABG Ionized Calcium 1.13 mmol/L (1.15-1.35); ABG Oxygen Saturation 100 % (95-98); ABG PCO2 39 mmHg (35-45); ABG PH 7.39 pH Units (7.32-7.45); ABG PO2 570 mmHg (85-104); ABG TCO2 25 mEq/L (20-26)
[2017-11-05 14:17] LABS: ABG Base Excess 1 mEq/L (-2 to 3); ABG Chloride 102 mEq/L (98-107); ABG Glucose 165 mg/dL (60-95); ABG HCO3 26 mEq/L (21-27); ABG Ionized Calcium 1.01 mmol/L (1.15-1.35); ABG PCO2 42 mmHg (35-45); ABG PH 7.39 pH Units (7.32-7.45); ABG PO2 > 630 mmHg (85-104); ABG TCO2 27 mEq/L (20-26)
[2017-11-05 14:40] LABS: ABG Base Excess 1 mEq/L (-2 to 3); ABG Chloride 104 mEq/L (98-107); ABG Glucose 149 mg/dL (60-95); ABG HCO3 27 mEq/L (21-27); ABG Ionized Calcium 1.03 mmol/L (1.15-1.35); ABG Oxygen Saturation 100 % (95-98); ABG PCO2 46 mmHg (35-45); ABG PH 7.37 pH Units (7.32-7.45); ABG PO2 533 mmHg (85-104); ABG TCO2 28 mEq/L (20-26)
[2017-11-05 15:13] LABS: ABG Base Excess 1 mEq/L (-2 to 3); ABG Chloride 106 mEq/L (98-107); ABG Glucose 104 mg/dL (60-95); ABG HCO3 26 mEq/L (21-27); ABG Ionized Calcium 1.18 mmol/L (1.15-1.35); ABG Oxygen Saturation 100 % (95-98); ABG PCO2 41 mmHg (35-45); ABG PO2 570 mmHg (85-104); ABG TCO2 27 mEq/L (20-26)
[2017-11-05] MEDS ORDERED: Albumin Human 5% 50.0 GM/1,000 ML VIAL ONE (15:26)
--- NOTE | 2017-11-05 15:49 | Operative Note ---
Date of procedure: 11/05/17 Pre-op diagnosis: CAD Post-op diagnosis: same Procedure: 1. CABG3 (VIERA to LAD, SVG to OM1, SVG to PDA). 2. Endoscopic vein harvesting, greater saphenous vein from right lower extremity. Implants: None. Complications: None. Anesthesia: ROBIA Surgeon: Adonay Valencia Meat Seafood Associate: Gui Bridges Specimen: None. Condition: stable Disposition: ICU Procedure in Detail: INDICATUINS FOR OPERATION: The patient is a 57 year old otherwise healthy man with sudden onset of epigastric and substernal chest pain radiating into his neck and down both arms this morning. Initially the patient thought that he had indigestion and walked into the bathroom. At this time the patient had severe pain and associated shortness of breath, diaphoresis, and nausea. The patient laid on the bathroom floor and had some relief of his substernal chest pain. His gave him an aspirin with some relief of the pain. The patient was transported to [facility] emergency department and in route received additional aspirin. In the emergency department he received sublingual nitroglycerin with relief of his pain. Although the initial troponin I level was normal, he underwent urgent cardiac catheterization given his presenting symptoms. The cardiac catheterization revealed severe three-vessel CAD and an LVEF 50%. In particular the patient had an 80% proximal LAD lesion, an 80% proximal OM1 lesion, an 80% distal RCA lesion. He has been recommended for urgent CABG FINDINGS AT OPERATION: The aorta was of normal caliber without calcification. The coronary arteries measure approximately 1.5-2mm in diameter and had mild distal disease. The greater saphenous vein was harvested endoscopically from the right lower extremity from the mid calf to the groin it was of good quality. The total bypass time was 63 minutes, cross-clamp time 33 minutes, intentional hypothermia 34C. DESCRIPTION OF OPERATION: After obtaining informed consent from the patient, he was taken to the operating room were a satisfactory general endotracheal anesthetic was induced. Appropriate monitoring lines placed, the patient's chest, abdomen, and lower extremity are prepped and draped in a sterile fashion. The greater saphenous vein was harvested endoscopically from the right lower extremity from the mid calf to the groin. The vein was removed, distended, and found to be of good quality. The saphenous tissue and skin edges were reapproximated using running Vicryl sutures. Simultaneously, a standard median sternotomy incision was made and the sternum divided. The VIERA was taken from its bed and side branches divided between hemoclips. The sternum was and the pericardium opened and reflected laterally. The patient was repaired for cannulation by placing pursestring sutures in the distal ascending aorta, mid-ascending aorta, and right atrial appendage. The patient was heparinized when the ACT was greater than 200 seconds , the distal ascending aorta was cannulated followed by placement of a dual stage venous cannula for the right atrial appendage and into the . Vena cava. A stab-in antegrade metabolic and is place the mid-ascending aorta. The patient was placed on bypass and temperature allowed to drift to 34C. The distal targets were identified and the aorta was crossclamped. The patient received 700 mL of cold antegrade crystalloid cardioplegia through the antegrade metabolic cannula and the patient's heart appeared rapid diastolic arrest. The distal RCA was opened with a [place] blade and the vein was anastomosed in an end-to-side to the distal RCA using a running 7-0 Prolene suture. The anastomosis was found to be hemostatic. This process was then repeated for the OM1 branch. After completion of this anastomosis the patient received a final dose of cold antegrade crystalloid cardioplegia through the aortic root. The LAD was opened with a [place] blade and the VIERA was anastomosed in an end-to- side fashion to the LAD using a running 7-0 Prolene suture. The anastomosis was found to be hemostatic and the mammary pedicle was tacked to the epicardium using interrupted 5-0 silk suture. Rewarming was begun during this anastomosis. The aortic cross-clamp was released and the heart distended. The veins were measured and cut at appropriate lengths. A partial occluding clamp was placed across the midascending aorta and the antegrade cardioplegia cannula was removed. An additional aortotomy site was then made with 11 blade and both sides were large and the 4 mm punch. The veins were then anastomosed in an end- to-side fashion to the aorta using a running 5-0 Prolene suture. The vein grafts were occluded with bulldog clamps and de-aired with a 25-gauge needle prior to removing the partial occluding clamp. The proximal and distal anastomoses were found to be hemostatic and the proximal anastomoses were marked with radiopaque loops. Two right ventricular temporary epicardial pacing was replaced, and 3 chest tubes were placed, 2 in the mediastinum and one into the left pleural space. During rewarming the patient's heart rhythm degenerated to ventricular fibrillation and required 2 direct current shocks in order to regain normal sinus rhythm. He was bolused with amiodarone and an amiodarone drip was begun. When the patient's systemic temperature reached 36C, he was ventilated received volume. He was weaned from bypass required no inotropic support. Protamine was administered, and the aortic and venous cannula were removed. The pursestring sutures were secured and the venous cannulation site was reinforced with a running 4-0 Prolene suture. The pericardium was loosely approximated in midline using interrupted 0 silk suture and the sternum was reapproximated using double wires. PRP was applied to the sternotomy edges and the subcutaneous tissue prior to complete closure of the incision. The pectoralis major fascia, rectus abdominis fascia, subcutaneous tissue, and skin edges were reapproximated using running Vicryl sutures. Sterile dressings were applied. The patient was transferred to the ICU in satisfactory postoperative condition. There were no intraoperative complications, and the instrument, needle, and sponge count were correct at end of operation. - Open Heart Detail DULCE (Internal Mammary Artery) Usage: Yes Cardiopulmonary Bypass Time (mins): 63 Aortic Cross Clamp Time (mins): 33 Intentional Hypothermia Temperature (C.): 34
[2017-11-05] MEDS ORDERED: Naloxone 0.4 MG/ML INJ IVP PRN (15:50)
[2017-11-05] MEDS ORDERED: *HR* Dextrose 50 % in Water (Syg) 50 ML SYRINGE IVP PRN (15:50)
[2017-11-05] MEDS ORDERED: Insulin Regular, Human 100 UNIT/ML IV PRN (15:50)
[2017-11-05] MEDS ORDERED: Amiodarone Premix 360 MG/200 ML BAG IVC ONE (15:50)
[2017-11-05] MEDS ORDERED: *HR* Morphine 2 MG/ML SYRINGE IVP PRN (15:50)
[2017-11-05] MEDS ORDERED: Acetaminophen 650 MG RECTAL SUPP RC PRN (15:50)
[2017-11-05] MEDS ORDERED: Potassium Chloride 40 MEQ/200 ML BAG IVPB PRN (15:50)
[2017-11-05] MEDS ORDERED: Norepinephrine 4 MG in D5% in Water 250 ML IVC SCH (16:00)
[2017-11-05] MEDS ORDERED: Pantoprazole 40 MG VIAL IVP SCH (16:00)
[2017-11-05] MEDS ORDERED: 0.9 % Sodium Chloride w KCl 20 MEQ/1,000 ML MLS IVC SCH (16:00)
[2017-11-05] MEDS ORDERED: Amiodarone Premix 360 MG/200 ML BAG IVC SCH (16:00)
[2017-11-05] MEDS ORDERED: Insulin Human Regular 100 UNIT in 0.9 % Sodium Chloride 100 ML IVC SCH (16:00)
[2017-11-05] MEDS: *HR* Morphine 2 MG/ML SYRINGE IVP PRN ×2 (16:16→17:17)
[2017-11-05] MEDS: Nitroglycerin 25 MG/250 ML INFUS..BTL IVC SCH ×2 (16:16→17:26)
[2017-11-05] MEDS: niCARdipine 40 MG/200 ML MLS IVC SCH (16:16)
[2017-11-05 16:42] LABS: Basophils % 0.2 %; Eosinophils # 0.1 K/mcL (0.0-0.6); Eosinophils % 0.4 %; Hematocrit 34.5 % (37.5-50.1); Immature Granulocytes % 0.5 % (0-4); Lymphocytes # 1.5 K/mcL (0.6-4.6); Lymphocytes % 8.9 %; Mean Corpuscular HGB Conc 34.5 g/dL (31.6-35.5); Mean Corpuscular Hemoglobin 33.7 pg (28.0-33.3); Mean Corpuscular Volume 97.7 fL (83.0-100.0); Monocytes % 6.1 %; Neutrophils # 13.8 K/mcL (1.6-8.9); Platelet Count 115 K/mcL (140-400); Red Blood Count 3.53 M/mcL (4.19-5.50); Red Cell Distribution Width 12.6 % (11.5-14.5); Segmented Neutrophils % 83.9 %
[2017-11-05 16:47] LABS: Hemoglobin 11.9 g/dL (12.9-16.9)
[2017-11-05 16:48] LABS: INR 1.4; Prothrombin Time 15.3 Seconds (9.4-12.1)
[2017-11-05 16:50] LABS: Activated Partial Thrombo Time 31.2 Seconds (26.0-36.0)
[2017-11-05 16:53] LABS: BUN/Creatinine Ratio 11 (6-26); Blood Urea Nitrogen 9 mg/dL (8-26); Calcium 7.8 mg/dL (8.6-10.8); Carbon Dioxide 23 mEq/L (19-29); Chloride 108 mEq/L (98-109); Glucose 116 mg/dL (70-99); Magnesium 2.2 mg/dL (1.6-2.6); Osmolality,Calculated 286 (280-300); Potassium 3.7 mEq/L (3.5-4.5); Sodium 138 mEq/L (136-145); eGFR For African Americans > 60 (> 60); eGFR For Non-African Americans > 60 (> 60)
[2017-11-05] MEDS: Heparin 25,000 UNIT/500 ML D5W 25,000 UNIT/500 ML BAG IVC SCH (16:53)
[2017-11-05 16:54] LABS: ABG Base Excess 2 mEq/L (-2 to 3); ABG HCO3 29 mEq/L (21-27); ABG Oxygen Saturation 100 % (95-98); ABG PCO2 54 mmHg (35-45); ABG PH 7.34 pH Units (7.32-7.45); ABG PO2 328 mmHg (85-104); ABG TCO2 31 mEq/L (20-26)
[2017-11-05] MEDS: Metoclopramide 10 MG/2 ML VIAL IVP SCH ×2 (17:30→23:13)
[2017-11-05] MEDS: Clindamycin 900 MG/50 ML 900 MG/50 ML IV.SOLN IVPB SCH ×2 (17:30→23:13)
[2017-11-05] MEDS: Ketorolac 15 MG/ML VIAL IVP SCH ×2 (17:30→23:13)
[2017-11-05 17:36] LABS: ABG Base Excess -3 mEq/L (-2 to 3); ABG HCO3 22 mEq/L (21-27); ABG Oxygen Saturation 96 % (95-98); ABG PCO2 38 mmHg (35-45); ABG PH 7.37 pH Units (7.32-7.45); ABG PO2 85 mmHg (85-104); ABG TCO2 23 mEq/L (20-26); Blood Gas Modality CPAP/PS; Blood Gas PEEP 5 cm H2O; Blood Gas Pressure Support 5 cm H2O
[2017-11-05] MEDS ORDERED: 0.9 % Sodium Chloride 250 ML ONE (19:31)
[2017-11-05 20:36] LABS: Hemoglobin 12.5 g/dL (12.9-16.9)
[2017-11-05] MEDS ORDERED: Chlorhexidine Rinse 15 ML MOUTHWASH MM SCH (21:00)
[2017-11-05] MEDS: *HR* OxyCODONE/APAP 5/325 TABLET PO PRN (21:04)
[2017-11-05 21:54] LABS: ABG Base Excess -3 mEq/L (-2 to 3); ABG HCO3 21 mEq/L (21-27); ABG Oxygen Saturation 98 % (95-98); ABG PCO2 33 mmHg (35-45); ABG PO2 98 mmHg (85-104); ABG TCO2 22 mEq/L (20-26)
[2017-11-06 04:04] LABS: Basophils % 0.1 %; Hematocrit 32.1 % (37.5-50.1); Immature Granulocytes % 0.3 % (0-4); Lymphocytes # 0.8 K/mcL (0.6-4.6); Lymphocytes % 4.6 %; Mean Corpuscular Hemoglobin 33.1 pg (28.0-33.3); Mean Corpuscular Volume 97.6 fL (83.0-100.0); Mean Platelet Volume 9.4 fL (9.4-12.4); Monocytes # 1.7 K/mcL (0.0-1.3); Monocytes % 10.2 %; Neutrophils # 14.3 K/mcL (1.6-8.9); Red Blood Count 3.29 M/mcL (4.19-5.50); Red Cell Distribution Width 12.8 % (11.5-14.5); Segmented Neutrophils % 84.8 %
[2017-11-06 04:06] LABS: Hemoglobin 10.9 g/dL (12.9-16.9); Platelet Count 98 K/mcL (140-400)
[2017-11-06 04:11] LABS: INR 1.1; Prothrombin Time 12.4 Seconds (9.4-12.1)
[2017-11-06 04:14] LABS: Activated Partial Thrombo Time 28.2 Seconds (26.0-36.0)
[2017-11-06 04:15] LABS: BUN/Creatinine Ratio 12 (6-26); Blood Urea Nitrogen 11 mg/dL (8-26); Calcium 8.1 mg/dL (8.6-10.8); Carbon Dioxide 23 mEq/L (19-29); Chloride 109 mEq/L (98-109); Glucose 132 mg/dL (70-99); Magnesium 2.1 mg/dL (1.6-2.6); Osmolality,Calculated 287 (280-300); Sodium 138 mEq/L (136-145); eGFR For African Americans > 60 (> 60); eGFR For Non-African Americans > 60 (> 60)
[2017-11-06] MEDS: 0.9 % Sodium Chloride 1,000 ML IVC SCH ×2 (04:32)
[2017-11-06] MEDS: Ketorolac 15 MG/ML VIAL IVP SCH ×3 (04:32→17:15)
[2017-11-06] MEDS: Nitroglycerin 25 MG/250 ML INFUS..BTL IVC SCH (04:32)
[2017-11-06] MEDS: Metoclopramide 10 MG/2 ML VIAL IVP SCH ×3 (04:32→17:15)
[2017-11-06] MEDS: niCARdipine 40 MG/200 ML MLS IVC SCH (04:33)
[2017-11-06] MEDS: *HR* OxyCODONE/APAP 5/325 TABLET PO PRN ×2 (06:42→11:33)
--- NOTE | 2017-11-06 07:36 | Cardiothoracic Progress Note ---
Date of Encounter: 11/06/17 Time of Encounter: 07:33 - Assessment and plan (1) Chest pain Current Visit: Yes Status: Acute The patient has remained hemodynamically stable overnight. He is extubated and breathing comfortably. The arterial line, Orellana catheter, and Onley-Lori catheter will be removed. The patient will be transferred to the stepdown unit when a bed is available. The assessment and plan as outlined above was discussed with the patient and/or family members who expressed understanding and agreement. All questions were answered. Qualifiers: Chest pain type: chest pain due to myocardial ischemia Qualified Code(s): I20.9 - Angina pectoris, unspecified - Subjective Procedure(s) Performed: POD#1 S/P CABG3 Interval history: The patient remained hemodynamically stable overnight. He is extubated and breathing comfortably. He has no complaints. Vital Signs, Last 4 Hours Temp Pulse Resp BP Pulse Ox 11/06/17 06:00 99.2 F 80 18 116/78 99 11/06/17 05:00 99.5 F 80 21 126/60 99 11/06/17 04:00 99.2 F 78 18 133/66 99 11/06/17 03:55 14 116/73 100 Oxgyen Flow Rate Oxygen Flow Rate (LPM) 3 Clinical Data, last 8 Hours Output, Chest Tube Drainage 75 Amount [Mediastinal #2] Output, Chest Tube Drainage 10 Amount [Mediastinal #2] Output, Chest Tube Drainage 20 Amount [Mediastinal #2] Output, Chest Tube Drainage 0 Amount [Mediastinal #2] Output, Chest Tube Drainage 10 Amount [Mediastinal #2] Output, Chest Tube Drainage 5 Amount [Mediastinal #2] Output, Chest Tube Drainage 8 Amount [Mediastinal #2] Output, Chest Tube Drainage 50 Amount [Mediastinal #1] Output, Chest Tube Drainage 20 Amount [Mediastinal #1] Output, Chest Tube Drainage 40 Amount [Mediastinal #1] Output, Chest Tube Drainage 18 Amount [Mediastinal #1] Output, Chest Tube Drainage 44 Amount [Mediastinal #1] Output, Chest Tube Drainage 22 Amount [Mediastinal #1] Output, Chest Tube Drainage 25 Amount [Mediastinal #1] - Physical Examination General: Conversant, No Apparent Distress Neck: No JVD, Normal carotid pulses Cardiac: Reg Rate and Rhythm, Normal S1 and S2, No Murmur Incision: No signs of infection, Dry/intact dressing Sternum: Stable Chest tubes: Minimal drainage, Other (No air leak.) Pacing Wires: In place Lungs: Normal Breath Sounds, No Wheeze, Rales, Rhonchi Neuro: Alert and responsive, No focal deficits noted Vascular: Normal capillary refill Extremities: No Clubbing, No Cyanosis, No Edema, Normal Pulses - Labs 11/06/17 03:54 11/06/17 03:54 Lab Results, Last 24 hours 11/05/17 11/05/17 11/05/17 16:37 16:37 16:37 WBC 16.5 H D Hgb 11.9 L D Hct 34.5 L Plt Count 115 L INR 1.4 APTT 31.2 Sodium 138 Potassium 3.7 Chloride 108 Carbon Dioxide 23 BUN 9 Creatinine 0.81 Glucose 116 H Calcium 7.8 L Magnesium 2.2 11/05/17 11/05/17 11/06/17 20:20 20:20 03:54 WBC 16.8 H Hgb 12.5 L 10.9 L D Hct 36.0 L 32.1 L Plt Count 98 L INR APTT Sodium Potassium 3.5 Chloride Carbon Dioxide BUN Creatinine Glucose Calcium Magnesium 11/06/17 11/06/17 03:54 03:54 WBC Hgb Hct Plt Count INR 1.1 APTT 28.2 Sodium 138 Potassium 5.0 H D Chloride 109 Carbon Dioxide 23 BUN 11 Creatinine 0.89 Glucose 132 H Calcium 8.1 L Magnesium 2.1 - Imaging Chest Xray: image reviewed (No pneumothorax. Left lower lobe atelectasis/ infiltrate. Small left pleural effusion area) - VTE Reasons for not Prescribing Prophylaxis: Medical contraindication Documentation of Mechanical Device: Graduated compression elastic hosiery Consult Discharge Plan - Plan Referrals: Diogenes Johnson DO [Primary Care Provider] -
[2017-11-06] MEDS ORDERED: D5% in Water 1,000 ML IVC PRN (08:16)
[2017-11-06] MEDS ORDERED: Insulin Regular, Human 100 UNIT/ML IV PRN (08:16)
[2017-11-06] MEDS ORDERED: Insulin Human Regular 100 UNIT in 0.9 % Sodium Chloride 100 ML IVC SCH (08:16)
[2017-11-06] MEDS ORDERED: Acetaminophen 325 MG TABLET PO PRN (08:16)
[2017-11-06] MEDS ORDERED: Dextrose Gel 15 GM PO PRN ×2 (08:16)
[2017-11-06] MEDS ORDERED: Naloxone 0.4 MG/ML INJ IVP PRN (08:16)
[2017-11-06] MEDS ORDERED: *HR* Dextrose 50 % in Water (Syg) 50 ML SYRINGE IVP PRN (08:16)
[2017-11-06] MEDS ORDERED: *HR* Morphine 2 MG/ML SYRINGE IVP PRN ×2 (08:16)
[2017-11-06] MEDS ORDERED: Aspirin Enteric Coated 81 MG Tablet PO SCH (09:00)
[2017-11-06] MEDS ORDERED: Furosemide 20 MG/2 ML VIAL IVP SCH (09:00)
[2017-11-06] MEDS: Gabapentin 300 MG CAPSULE PO SCH ×3 (09:55→21:13)
[2017-11-06] MEDS: *HR* Amiodarone 200 MG TABLET PO SCH (09:55)
[2017-11-06] MEDS: Aspirin Enteric Coated 81 MG Tablet PO SCH (09:55)
[2017-11-06] MEDS: Pantoprazole 40 MG VIAL IVP SCH (09:56)
[2017-11-06] MEDS: Chlorhexidine Rinse 15 ML MOUTHWASH MM SCH ×2 (09:56→21:13)
[2017-11-06] MEDS: Furosemide 20 MG/2 ML VIAL IVP SCH ×2 (09:57→21:14)
[2017-11-06] MEDS: Fluticasone Propionate Nasal 50 MCG/SPRAY BOTTLE NS SCH (11:32)
[2017-11-06] MEDS: Insulin LISPRO 300 UNITS/3 ML VIAL SQ SCH ×3 (11:37→21:12)
[2017-11-07] MEDS: Ketorolac 15 MG/ML VIAL IVP SCH ×4 (00:25→17:35)
[2017-11-07] MEDS: Metoclopramide 10 MG/2 ML VIAL IVP SCH ×4 (00:26→17:35)
[2017-11-07] MEDS: *HR* OxyCODONE/APAP 5/325 TABLET PO PRN ×3 (03:34→15:05)
[2017-11-07 05:10] LABS: Eosinophils % 0.1 %
[2017-11-07 05:12] LABS: Basophils % 0.2 %; Hematocrit 33.2 % (37.5-50.1); Hemoglobin 11.3 g/dL (12.9-16.9); Immature Granulocytes % 0.6 % (0-4); Immature Platelets 4.6 % (1.1-6.1); Lymphocytes # 2.1 K/mcL (0.6-4.6); Lymphocytes % 14.5 %; Mean Corpuscular Hemoglobin 33.2 pg (28.0-33.3); Mean Corpuscular Volume 97.6 fL (83.0-100.0); Mean Platelet Volume 9.9 fL (9.4-12.4); Monocytes # 1.4 K/mcL (0.0-1.3); Monocytes % 9.7 %; Platelet Count 108 K/mcL (140-400); Red Cell Distribution Width 12.6 % (11.5-14.5); Segmented Neutrophils % 74.9 %
[2017-11-07 05:13] LABS: Neutrophils # 10.9 K/mcL (1.6-8.9)
[2017-11-07 05:23] LABS: BUN/Creatinine Ratio 13 (6-26); Blood Urea Nitrogen 14 mg/dL (8-26); Calcium 8.5 mg/dL (8.6-10.8); Carbon Dioxide 27 mEq/L (19-29); Chloride 102 mEq/L (98-109); Glucose 101 mg/dL (70-99); Osmolality,Calculated 285 (280-300); Potassium 4.5 mEq/L (3.5-4.5); Sodium 137 mEq/L (136-145); eGFR For African Americans > 60 (> 60); eGFR For Non-African Americans > 60 (> 60)
[2017-11-07] MEDS: Insulin LISPRO 300 UNITS/3 ML VIAL SQ SCH ×4 (07:48→21:24)
[2017-11-07] MEDS: Aspirin Enteric Coated 81 MG Tablet PO SCH (08:26)
[2017-11-07] MEDS: Gabapentin 300 MG CAPSULE PO SCH ×3 (08:26→20:34)
[2017-11-07] MEDS: Pantoprazole 40 MG VIAL IVP SCH (08:26)
[2017-11-07] MEDS: *HR* Amiodarone 200 MG TABLET PO SCH (08:26)
[2017-11-07] MEDS: Chlorhexidine Rinse 15 ML MOUTHWASH MM SCH ×2 (08:26→20:34)
[2017-11-07] MEDS: Furosemide 20 MG/2 ML VIAL IVP SCH ×2 (08:26→20:34)
[2017-11-07] MEDS: Fluticasone Propionate Nasal 50 MCG/SPRAY BOTTLE NS SCH (08:27)
--- NOTE | 2017-11-07 14:51 | Cardiothoracic Progress Note ---
Date of Encounter: 11/07/17 Time of Encounter: 14:49 - Assessment and plan (1) Chest pain Current Visit: Yes Status: Acute The assessment and plan as outlined above was discussed with the patient and/or family members who expressed understanding and agreement. All questions were answered. The chest tubes were removed. We will check a stat portable chest x-ray. The patient is doing well. Qualifiers: Chest pain type: chest pain due to myocardial ischemia Qualified Code(s): I20.9 - Angina pectoris, unspecified - Subjective Interval history: The patient has been ambulating and has no complaints. Vital Signs, Last 4 Hours Temp Pulse Resp BP Pulse Ox 11/07/17 11:43 18 96 11/07/17 11:20 77 11/07/17 11:10 99.3 F 79 19 110/68 92 Oxgyen Flow Rate Oxygen Flow Rate (LPM) 0 Clinical Data, last 8 Hours Output, Chest Tube Drainage 30 Amount [Mediastinal #2] Output, Chest Tube Drainage 20 Amount [Mediastinal #1] Output, Urine Amount 250 Weight 11/05/17 11/06/17 11/07/17 23:59 23:59 23:59 Weight 85.2 kg Lungs are clear to percussion and auscultation. Heart is in a regular rate and rhythm. All incisions are healing well without signs of infection and the sternum is stable. Chest tube drainage is minimal and there is no air leak. - Labs 11/07/17 04:47 11/07/17 04:49 Lab Results, Last 24 hours 11/07/17 11/07/17 04:47 04:49 WBC 14.5 H Hgb 11.3 L Hct 33.2 L Plt Count 108 L Sodium 137 Potassium 4.5 Chloride 102 Carbon Dioxide 27 BUN 14 Creatinine 1.08 Glucose 101 H Calcium 8.5 L - VTE Reasons for not Prescribing Prophylaxis: Medical contraindication Documentation of Mechanical Device: Graduated compression elastic hosiery Consult Discharge Plan - Plan Referrals: Adonay Valencia MD [Partnered Physician] - 12/01/17 2:40 pm Arnav Samaniego CNP [Advanced Practice Nurse] - (SENT WEB REQUEST ON 11-07-17 @ [id number]) Diogenes Johnson DO [Primary Care Provider] - 11/15/17 12:00 pm ()
--- NOTE | 2017-11-07 17:14 | Electrocardiograph Report ---
[address] [address] Test Date: 2017-11-05 Pat Name: Genaro Christie Department: 113 Room: 2N09 Gender: M Program Engineer: : 1960 Requested By: Chadwick Cano Order Number: [id number] Reading MD: Gui Echols Measurements Intervals [place] Rate: 64 P: 48 SC: 160 QRS: 58 QRSD: 100 T: 19 QT: 424 QTc: 434 Interpretive Statements SINUS RHYTHM NONSPECIFIC T-WAVE ABNORMALITY Electronically Signed On 11-07-2017 17:12:52 EST by Gui Echols
[2017-11-08] MEDS: Metoclopramide 10 MG/2 ML VIAL IVP SCH ×3 (00:11→12:16)
[2017-11-08] MEDS: Ketorolac 15 MG/ML VIAL IVP SCH ×5 (00:11→23:26)
[2017-11-08 00:38] LABS: Basophils % 0.2 %; Eosinophils % 0.3 %; Hematocrit 32.3 % (37.5-50.1); Hemoglobin 11.3 g/dL (12.9-16.9); Immature Granulocytes % 0.4 % (0-4); Lymphocytes # 2.2 K/mcL (0.6-4.6); Lymphocytes % 16.6 %; Mean Corpuscular Hemoglobin 33.9 pg (28.0-33.3); Mean Platelet Volume 9.7 fL (9.4-12.4); Monocytes # 1.2 K/mcL (0.0-1.3); Monocytes % 8.8 %; Neutrophils # 9.7 K/mcL (1.6-8.9); Platelet Count 115 K/mcL (140-400); Red Blood Count 3.33 M/mcL (4.19-5.50); Red Cell Distribution Width 12.3 % (11.5-14.5); Segmented Neutrophils % 73.7 %
[2017-11-08 00:50] LABS: BUN/Creatinine Ratio 12 (6-26); Blood Urea Nitrogen 14 mg/dL (8-26); Carbon Dioxide 29 mEq/L (19-29); Chloride 99 mEq/L (98-109); Glucose 107 mg/dL (70-99); Osmolality,Calculated 283 (280-300); Potassium 4.2 mEq/L (3.5-4.5); Sodium 136 mEq/L (136-145); eGFR For African Americans > 60 (> 60); eGFR For Non-African Americans > 60 (> 60)
--- NOTE | 2017-11-08 07:39 | Cardiothoracic Progress Note ---
Date of Encounter: 11/08/17 Time of Encounter: 07:38 - Assessment and plan (1) Chest pain Current Visit: Yes Status: Acute The patient is doing well. We will plan to discharge him tomorrow. Qualifiers: Chest pain type: chest pain due to myocardial ischemia Qualified Code(s): I20.9 - Angina pectoris, unspecified - Subjective Interval history: The patient is ambulating and has no complaints. Vital Signs, Last 4 Hours Temp Pulse Resp BP Pulse Ox 11/08/17 07:34 98.7 F 106 18 117/79 95 11/08/17 04:30 84 11/08/17 04:14 98.8 F 95 16 130/89 92 11/08/17 04:09 17 94 Oxgyen Flow Rate Oxygen Flow Rate (LPM) 0 Clinical Data, last 8 Hours Output, Urine Amount 200 Output, Urine Amount 300 Output, Urine Amount 150 Weight 11/06/17 11/07/17 11/08/17 23:59 23:59 23:59 Weight 85.2 kg 97.8 kg Lungs are clear to percussion and auscultation. Heart is in a normal sinus rhythm. All incisions are healing well without signs of infection and the sternum is stable. - Labs 11/08/17 00:29 11/08/17 00:29 Lab Results, Last 24 hours 11/08/17 11/08/17 00:29 00:29 WBC 13.2 H Hgb 11.3 L Hct 32.3 L Plt Count 115 L Sodium 136 Potassium 4.2 Chloride 99 Carbon Dioxide 29 BUN 14 Creatinine 1.17 Glucose 107 H Calcium 9.0 - VTE Reasons for not Prescribing Prophylaxis: Medical contraindication Documentation of Mechanical Device: Graduated compression elastic hosiery Consult Discharge Plan - Plan Referrals: Adonay Valencia MD [Partnered Physician] - 12/01/17 2:40 pm Arnav Samaniego CNP [Advanced Practice Nurse] - (SENT WEB REQUEST ON 11-07-17 @ [phone]) Diogenes Johnson DO [Primary Care Provider] - 11/15/17 12:00 pm ()
[2017-11-08] MEDS: Insulin LISPRO 300 UNITS/3 ML VIAL SQ SCH ×4 (07:52→21:21)
[2017-11-08] MEDS: Furosemide 20 MG/2 ML VIAL IVP SCH ×2 (07:59→20:13)
[2017-11-08] MEDS: Gabapentin 300 MG CAPSULE PO SCH ×3 (07:59→20:13)
[2017-11-08] MEDS: Chlorhexidine Rinse 15 ML MOUTHWASH MM SCH ×2 (07:59→20:13)
[2017-11-08] MEDS: Aspirin Enteric Coated 81 MG Tablet PO SCH (07:59)
[2017-11-08] MEDS: *HR* Amiodarone 200 MG TABLET PO SCH (07:59)
[2017-11-08] MEDS: Fluticasone Propionate Nasal 50 MCG/SPRAY BOTTLE NS SCH (08:00)
[2017-11-08] MEDS: Pantoprazole 40 MG VIAL IVP SCH (08:01)
[2017-11-08] MEDS ORDERED: Amiodarone Premix 150 MG/100 ML BAG IVPB ONE ×2 (08:29→08:36)
[2017-11-08] MEDS ORDERED: Amiodarone Premix 360 MG/200 ML BAG IVC ONE ×2 (08:36→08:43)
--- NOTE | 2017-11-08 09:44 | Electrocardiograph Report ---
[place] [address] Test Date: 2017-11-05 Pat Name: Genaro Christie Department: 109 Room: 2N09 Gender: M Sba Business Development Officer: ARIANNA : 1960 Requested By: Adonay Valencia Order Number: [id number] Reading MD: Rishi Aguillon DO Measurements Intervals [place] Rate: 71 P: 49 IN: 172 QRS: 56 QRSD: 106 T: 82 QT: 447 QTc: 470 Interpretive Statements SINUS RHYTHM NONSPECIFIC T-WAVE ABNORMALITY PROLONGED QT INTERVAL Electronically Signed On 11-08-2017 9:42:34 EST by Rishi Aguillon DO
[2017-11-08] MEDS: Amiodarone Premix 360 MG/200 ML BAG IVC SCH (14:40)
[2017-11-09] MEDS: Amiodarone Premix 360 MG/200 ML BAG IVC SCH (02:34)
[2017-11-09] MEDS: Ketorolac 15 MG/ML VIAL IVP SCH ×4 (06:02→23:45)
[2017-11-09] MEDS: Gabapentin 300 MG CAPSULE PO SCH ×3 (07:51→20:30)
[2017-11-09] MEDS: *HR* Amiodarone 200 MG TABLET PO SCH (07:51)
[2017-11-09] MEDS: Aspirin Enteric Coated 81 MG Tablet PO SCH (07:51)
[2017-11-09] MEDS: Chlorhexidine Rinse 15 ML MOUTHWASH MM SCH ×2 (07:52→20:31)
[2017-11-09] MEDS: Fluticasone Propionate Nasal 50 MCG/SPRAY BOTTLE NS SCH (07:54)
[2017-11-09] MEDS: Insulin LISPRO 300 UNITS/3 ML VIAL SQ SCH (07:54)
--- NOTE | 2017-11-09 10:54 | Cardiothoracic Progress Note ---
Date of Encounter: 11/09/17 Time of Encounter: 10:52 - Assessment and plan (1) Chest pain Current Visit: Yes Status: Acute We will discontinue the amiodarone drip and place the patient on by mouth amiodarone. Hopefully, he can be discharged tomorrow. Qualifiers: Chest pain type: chest pain due to myocardial ischemia Qualified Code(s): I20.9 - Angina pectoris, unspecified - Subjective Interval history: The patient feels good and is ambulating without difficulty. Vital Signs, Last 4 Hours Temp Pulse Resp BP Pulse Ox 11/09/17 07:40 77 11/09/17 07:01 98.5 F 80 14 141/72 95 Oxgyen Flow Rate Oxygen Flow Rate (LPM) 0 Clinical Data, last 8 Hours Output, Urine Amount 0 Output, Urine Amount 175 Weight 11/07/17 11/08/17 11/09/17 23:59 23:59 23:59 Weight 85.2 kg 97.8 kg 96.2 kg Lungs are clear to percussion and auscultation. Heart is in a normal sinus rhythm. All incisions are healing well without signs of infection and the sternum is stable. - Labs 11/08/17 00:29 11/08/17 00:29 - VTE Reasons for not Prescribing Prophylaxis: Medical contraindication Documentation of Mechanical Device: Graduated compression elastic hosiery Consult Discharge Plan - Plan Referrals: Adonay Valencia MD [Partnered Physician] - 12/01/17 2:40 pm Arnav Samaniego CNP [Advanced Practice Nurse] - (SENT WEB REQUEST ON 11-07-17 @ [id number]) Diogenes Johnson DO [Primary Care Provider] - 11/15/17 12:00 pm ()
[2017-11-09] MEDS: *HR* OxyCODONE/APAP 5/325 TABLET PO PRN (20:30)
[2017-11-10] MEDS: Ketorolac 15 MG/ML VIAL IVP SCH (06:19)
[2017-11-10 07:50] VITALS: BP 126/78
[2017-11-10] MEDS: Fluticasone Propionate Nasal 50 MCG/SPRAY BOTTLE NS SCH (08:17)
[2017-11-10] MEDS: Chlorhexidine Rinse 15 ML MOUTHWASH MM SCH (08:17)
[2017-11-10] MEDS: *HR* Amiodarone 200 MG TABLET PO SCH (08:17)
[2017-11-10] MEDS: Aspirin Enteric Coated 81 MG Tablet PO SCH (08:17)
[2017-11-10] MEDS: Gabapentin 300 MG CAPSULE PO SCH (08:18)
[2017-11-10] MEDS ORDERED: Ondansetron 4 MG/2 ML VIAL IVP PRN (08:31)
[2017-11-10] MEDS ORDERED: Ondansetron 4 MG/2 ML VIAL ONE (08:38)
--- NOTE | 2017-11-10 09:49 | Discharge Summary ---
Date of Encounter: 11/10/17 Time of Encounter: 09:43 - Discharge Diagnosis (1) Chest pain Priority: Primary Status: Acute Qualifiers: Chest pain type: chest pain due to myocardial ischemia Ischemic chest pain type: unstable angina pectoris Qualified Code(s): I20.0 - Unstable angina - Discharge Medications Prescriptions: Amiodarone [Cordarone] 200 mg PO DAILY #30 tablet Aspirin Enteric Coated [Aspirin EC] 81 mg PO DAILY #60 tablet. Atorvastatin [Lipitor] 80 mg PO HS #30 tablet Metoprolol [Lopressor] 50 mg PO BID #60 tablet OxyCODONE/APAP 5/325 [Percocet 5/325 MG] 1 each PO Q4H PRN #30 tablet PRN Reason: Severe Pain Home Medications: Fluticasone Propionate Nasal [Flonase] 2 spray NS DAILY 06/21/16 [History] Naproxen [Naprosyn] 500 mg PO BID 06/21/16 [History] Gabapentin [Neurontin] 300 mg PO TID 11/04/17 [History] Omeprazole [PriLOSEC] 20 mg PO DAILY 11/04/17 [History] Amiodarone [Cordarone] 200 mg PO DAILY #30 tablet 11/10/17 [Rx] Aspirin Enteric Coated [Aspirin EC] 81 mg PO DAILY #60 tablet. 11/10/17 [Rx] Atorvastatin [Lipitor] 80 mg PO HS #30 tablet 11/10/17 [Rx] Metoprolol [Lopressor] 50 mg PO BID #60 tablet 11/10/17 [Rx] OxyCODONE/APAP 5/325 [Percocet 5/325 MG] 1 each PO Q4H PRN #30 tablet 11/10/17 [ Rx] Allergies/Adverse Reactions: 3 Allergy/AdvReac Type Severity Reaction Status Date / Time Penicillins Allergy See Verified 10/31/15 10:39 Comments Date of admission: 11/05/17 15:49 Primary care physician: Javon Dumont Consults: 11/05/17 15:51 Consult to Cardiac Rehabilitation-Phase1 [CONS] Routine Comment: Reason for Consult: Post open heart Call Completed: Yes Procedure(s) Performed: November 05, 2017. Coronary artery bypass grafting 3, utilizing the left internal mammary artery. Discharging clinician: Arnol Joyner Anticipated date of discharge: 11/10/17 - Patient Status Disposition: Home, Self-Care Condition: Fair Functional capacity at discharge: independent ambulation Overall status at discharge: patient is progressing back to baseline - Discharge Instructions Follow Up With: Adonay Valencia MD [Partnered Physician] - 12/01/17 2:40 pm Arnav Samaniego CNP [Advanced Practice Nurse] - (SENT WEB REQUEST ON 11-07-17 @ [id number]) Diogenes Johnson DO [Primary Care Provider] - 11/15/17 12:00 pm () - Hospital Course Hospital course: Mr. Christie is a 57 year old male The patient is a 57-year-old gentleman who presented with chest pain and unstable angina. Cardiac catheterization revealed triple-vessel disease and he was referred for surgery. On November 05, 2017 he was brought to the OR where he underwent coronary artery bypass grafting 3, utilizing his left internal mammary artery. On September 06, he was transferred to the floor. On September 07, his chest tubes were removed. Chest x-ray revealed bilateral, tiny apical pneumothoraces which were stable on subsequent x-rays. He did develop atrial fibrillation and was placed on an amiodarone drip, followed by by mouth amiodarone. The patient otherwise did well and was discharged on November 10. At that time, he was afebrile. Lungs were clear to percussion and auscultation. Heart was in a normal sinus rhythm. All incisions were healing well without signs of infection and the sternum was stable. Medications are on the med rec can include Percocet for pain. I did check the [place] automated Rx reporting system. He was given a one-week supply and he was postoperative. Appropriate precautions were given. He was to return to his previous regular diet. He was to walk as much as possible, but to avoid heavy lifting for a total of 3 months after surgery. He was to avoid driving for 1 month. He was to follow up and see Dr. Valencia in 4 weeks in the office as directed. He was to follow-up with his senior center manager and family doctor as directed. He was to call sooner for any difficulties. - Time Spent with Patient Total time spent providing and/or coordinating discharge services: Physical Examination Vital Signs, Last 4 Hours Temp Pulse Resp BP Pulse Ox 11/10/17 08:06 18 95 11/10/17 07:42 98.0 F 93 18 126/78 99 Open Heart Registry Aspirin Cont/Prescribed at DC: Yes Beta Mary Cont/Prescribed at DC: Yes Statin Cont/Prescribed at DC: Yes BRIANNA/ARB Cont/Prescribed at DC: Not indicated - VTE Reasons for not Prescribing Prophylaxis: Medical contraindication Documentation of Mechanical Device: Graduated compression elastic hosiery
== END 2017-11-10 12:30 | disposition home or self-care (01) | DRG 234 ==
LOC: EMEROO 07:50 → 3BNU 07:50 → ICNU 11-05 14:48 → 2NNU 11-06 14:46
PROVIDERS: ADMIT Internal Medicine; ATTEND Thoracic Surgery (Cardiothoracic Vascular Surgery)